=== PATIENT | female | born 1970 | race Caucasian/White ===

== ENCOUNTER 2017-04-16 03:38 | Emergency (ER) | payer SELFPAY ==
[2017-04-16 03:49] VITALS: BP 151/83; PULSE 67; RESP 18; TEMP 97.4
[2017-04-16] MEDS ORDERED: DIPH,PERTUS(ACELL)TETVAC-LF 0.5 ML VIAL IM ONE (03:52)
--- NOTE | 2017-04-16 04:14 | ED ---
Wound/Laceration HPI - General Chief Complaint: Wound/Laceration Stated Complaint: [facility]-finger lac Time Seen by Provider: 04/16/17 03:52 Source: patient Mode of arrival: ambulatory Limitations: no limitations - History of Present Illness Initial Comments: 46-year-old female patient presents to emergency department today for evaluation of a laceration to the palmar aspect of the distal tip of the index finger on the right hand. Patient is a senior reservations agent and states that she was testing a liquid for presence of drugs. States that the reagent ampule broke through the plastic and sliced her finger. Patient states that it did bleed for quite some time. States she did wash the area out. She is concerned there may be glass in the wound. If she is unsure when her last tetanus vaccine was given. Patient denies any headache, neck pain, back pain, chest pain, shortness of breath, dizziness, weakness, abdominal pain, nausea, vomiting, or difficulties with bowel movements or urination. - Related Data Home Medications Medication Instructions Recorded Confirmed Ixekizumab [Taltz Autoinjector] 80 mg SQ 04/16/17 Meloxicam [Mobic] 15 mg PO DAILY PRN 04/16/17 04/16/17 Allergies Allergy/AdvReac Type Severity Reaction Status Date / Time codeine Allergy Rash/Hives Verified 04/16/17 03:49 Review of Systems ROS Statement: Those systems with pertinent positive or pertinent negative responses have been documented in the HPI. ROS Other: All systems not noted in ROS Statement are negative. Past Medical History Additional Past Medical History / Comment(s): hypoglycemic, psoriatic arthritis , partial thyroidectomy History of Any Multi-Drug Resistant Organisms: None Reported Additional Past Surgical History / Comment(s): partial thyroidectomy Past Psychological History: No Psychological Hx Reported Smoking Status: Unknown if ever smoked Past Alcohol Use History: None Reported Past Drug Use History: None Reported General Exam Limitations: no limitations General appearance: alert, in no apparent distress, other (His is a well- developed, well-nourished adult female patient in no acute distress. Vital signs upon presentation are temperature 97.4F, pulse 67, respirations 18, blood pressure 151/83, pulse ox 96% on room air.) Eye exam: Present: normal appearance, PERRL, EOMI. Absent: scleral icterus, conjunctival injection, periorbital swelling ENT exam: Present: normal exam, normal oropharynx, mucous membranes moist Respiratory exam: Present: normal lung sounds bilaterally. Absent: respiratory distress, wheezes, rales, rhonchi, stridor Cardiovascular Exam: Present: regular rate, normal rhythm, normal heart sounds. Absent: systolic murmur, diastolic murmur, rubs, gallop, clicks Extremities exam: Present: full ROM, normal capillary refill, other (There is a 0.5 cm laceration to the distal tip, palmar aspect, of the right index finger. Bleeding is controlled at this time. Skin is otherwise pink, warm, and dry. Cap refills less than 3 seconds. Radial pulses 2+ and equal bilaterally.). Absent: tenderness, pedal edema, joint swelling, calf tenderness Neurological exam: Present: alert, oriented X3, CN II-XII intact Psychiatric exam: Present: normal affect, normal mood Skin exam: Present: warm, dry, intact, normal color. Absent: rash Course Vital Signs 04/16/17 03:43 Temperature 97.4 F L Pulse Rate 67 Respiratory 18 Rate Blood Pressure 151/83 O2 Sat by Pulse 96 Oximetry Procedures - Laceration Laceration #1 Indication: laceration Site: hand Description: linear Depth: simple, single layer Pre-repair: irrigated extensively Patient Tolerated Procedure: well, no complications Additional Comments: Laceration size is 0.5 cm Medical Decision Making - Medical Decision Making 46-year-old female patient presented to the emergency department today for evaluation of a laceration to the palmar aspect of the distal tip of the right index finger. Patient did cut her finger on a ampule filled with chemicals. I did call poison control regarding this and they do not give any specific instructions and state that at this point patient should not have any ill effects. X-ray was obtained to rule out foreign body, there was no evidence of foreign body. We did irrigate the wound. Laceration did not require repair. She was updated on her tetanus vaccine. She was educated regarding signs or symptoms of infection. She is instructed to follow up with [facility] for any further needs. She is instructed to return here immediate for any new, worsening, or concerning symptoms per she verbalizes understanding and agrees with this plan. - Radiology Data Radiology results: report reviewed, image reviewed Review x-ray of the right second digit shows the bones and joints are unremarkable no acute fracture or dislocation. Soft tissues are unremarkable with no radiopaque foreign body. Impression by Dr. Amador shows no evidence of fracture, abnormal alignment or significant degenerative change of the second digit. No soft tissue abnormality. Disposition Clinical Impression: Finger laceration Disposition: HOME SELF-CARE Condition: Good Instructions: Laceration (ED) Additional Instructions: Keep wound clean and dry. Wash twice daily with warm water and antibacterial soap. Monitor for signs or symptoms of infection including but not limited to swelling, redness, drainage of pus, fever, or chills. Follow-up with [facility] for any further needs. Return here immediately for any new, worsening, or concerning symptoms. Referrals: Raudel Vasquez DO [Primary Care Provider] - 1-2 days Time of Disposition: 04:45
--- NOTE | 2017-04-16 04:24 | XR ---
EXAM: XR Right Finger(s), 2 or More Views CLINICAL HISTORY: Reason: Pain TECHNIQUE: Frontal, lateral and oblique views of finger(s) of the right second digit. COMPARISON: No relevant prior studies available. FINDINGS: Bones/joints: Unremarkable. No acute fracture. No dislocation. Soft tissues: Unremarkable. No radiopaque foreign body. IMPRESSION: No evidence of fracture, abnormal alignment or significant degenerative change of the right second digit. No soft tissue abnormality.
== END 2017-04-16 05:07 | disposition home or self-care (01) ==
LOC: EC 03:38
DX: S61.210A Laceration without foreign body of right index finger without damage to nail, initial encounter (principal); L40.50 Arthropathic psoriasis, unspecified; Z79.899 Other long term (current) drug therapy; Z88.5 Allergy status to narcotic agent; Z23 Encounter for immunization; W45.8XXA Other foreign body or object entering through skin, initial encounter; Y93.89 Activity, other specified; Y92.69 Other specified industrial and construction area as the place of occurrence of the external cause; Y99.0 Civilian activity done for income or pay
CPT/HCPCS: 90471; 90715; 99283